=== PATIENT | female | born 1975 | race American Indian/Alaskan Native ===

== ENCOUNTER 2016-07-29 12:51 | Emergency (ER) | payer SELFPAY ==
--- NOTE | 2016-07-29 15:57 | Emergency Department Report ---
Chief Complaint: Abdominal Pain Stated Complaint: POSS STD Time Seen by Provider: 07/29/16 15:49 - HPI History of Present Illness: 41-year-old female comes in complaining of vaginal burning and itching positive discharge odor. Patient reports that she has some pelvic pain that comes and goes. Patient denies any painful urination and vaginal bleeding or nausea no vomiting or diarrhea. LMP 07/22/2016 - Exam Vital Signs: Vital Signs 07/29/16 13:38 Temperature 98.4 F Pulse Rate 70 Respiratory 16 Rate Blood Pressure 170/114 O2 Sat by Pulse 100 Oximetry Physical Exam: Alert and oriented 3 abdomen soft nontender non-distended. MSE screening note: Focused history and physical exam performed. Due to findings the following was ordered: Been evaluated by this and SE provider. Patient was order a CBC BMP and UA should be evaluated in the main ER ED Disposition for MSE Condition: Stable Instructions: Abdominal Pain (ED)
[2016-07-29 16:37] LABS: Hematocrit 34.4 % (30.3-42.9); Hemoglobin 11.3 gm/dl (10.1-14.3); Mean Corpuscular HGB Conc 33 % (30-34); Mean Corpuscular Hemoglobin 27 pg (28-32); Mean Corpuscular Volume 83 fl (79-97); Platelet Count 351 K/mm3 (140-440); Red Blood Count 4.17 M/mm3 (3.65-5.03); Red Cell Distribution Width 16.2 % (13.2-15.2); White Blood Count 8.3 K/mm3 (4.5-11.0)
[2016-07-29 17:07] LABS: Bilirubin,Urine NEG (Negative); Blood,Urine NEG (Negative); Ketones,Urine TR mg/dL (Negative); Leukocyte Esterase,Urine TR (Negative); Mucus,Urine FEW /HPF; Nitrite,Urine NEG (Negative); Urobilinogen,Urine < 2.0 mg/dL (<2.0)
[2016-07-29 17:23] LABS: Anion Gap 19 mmol/L; Blood Urea Nitrogen 14 mg/dL (7-17); Calcium 9.4 mg/dL (8.4-10.2); Carbon Dioxide 29 mmol/L (22-30); Chloride 94.7 mmol/L (98-107); Glucose 130 mg/dL (65-100); Potassium 3.7 mmol/L (3.6-5.0); Sodium 139 mmol/L (137-145)
--- NOTE | 2016-07-29 23:58 | Emergency Department Report ---
ED General Adult HPI - General Chief complaint: Abdominal Pain Stated complaint: POSS STD Time Seen by Provider: 07/29/16 15:49 Source: patient, RN notes reviewed Mode of arrival: Ambulatory Limitations: No Limitations - History of Present Illness Initial comments: This is a 41-year-old female, previously unknown to me. She does not have a primary care doctor. She reports a past medical history of hypertension. Surgical history includes dilatation and curettage, section, and laparoscopy in the for issues with fertility. She reports that her fallopian tubes were scarred up. She does not have an [employer] doctor. Patient presents to the ER with painful vaginal discharge. Has been going on for the past few days. Denies nausea, vomiting, chest pain. She does admit to intermittent abdominal pain. The abdominal pain is diffuse. It is associated with left flank pain. The pain has no exacerbating or relieving factors. -: Gradual Location: back, abdomen, pelvis, genitals Radiation: back Quality: aching Consistency: intermittent Improves with: none Worsens with: none Associated Symptoms: denies: confusion, chest pain, cough, diaphoresis, fever/ chills, headaches, loss of appetite, malaise, nausea/vomiting, rash, seizure, shortness of breath, syncope, weakness - Related Data Previous Rx's Medication Instructions Recorded Last Taken Type Doxycycline [Vibramycin] 100 mg PO Q12HR #28 capsule 07/30/16 Unknown Rx Ketorolac [Toradol] 10 mg PO Q6H PRN #20 tablet 07/30/16 Unknown Rx Ondansetron [Zofran Odt] 4 mg PO QID PRN #20 tab.rapdis 07/30/16 Unknown Rx oxyCODONE [Roxicodone] 5 mg PO Q6HR PRN #15 tablet 07/30/16 Unknown Rx Allergies Allergy/AdvReac Type Severity Reaction Status Date / Time No Known Allergies Allergy Verified 07/30/16 00:45 ED Review of Systems ROS: Stated complaint: POSS STD Other details as noted in HPI Constitutional: denies: malaise Eyes: denies: vision change ENT: denies: epistaxis Respiratory: denies: cough Gastrointestinal: abdominal pain Genitourinary: discharge Musculoskeletal: back pain Skin: denies: lesions Neurological: denies: weakness ED Past Medical Hx - Medications Home Medications: Home Medications Medication Instructions Recorded Confirmed Last Taken Type Doxycycline [Vibramycin] 100 mg PO Q12HR #28 capsule 07/30/16 Unknown Rx Ketorolac [Toradol] 10 mg PO Q6H PRN #20 tablet 07/30/16 Unknown Rx Ondansetron [Zofran Odt] 4 mg PO QID PRN #20 tab.rapdis 07/30/16 Unknown Rx oxyCODONE [Roxicodone] 5 mg PO Q6HR PRN #15 tablet 07/30/16 Unknown Rx ED Physical Exam - General Limitations: No Limitations General appearance: alert, in no apparent distress - Head Head exam: Present: atraumatic, normocephalic - Eye Eye exam: Present: normal appearance, EOMI. Absent: nystagmus - ENT ENT exam: Present: normal exam, normal orophraynx, mucous membranes moist - Neck Neck exam: Present: normal inspection, full ROM. Absent: tenderness, meningismus - Respiratory Respiratory exam: Present: normal lung sounds bilaterally. Absent: respiratory distress, wheezes, rales, rhonchi, stridor, chest wall tenderness - Cardiovascular Cardiovascular Exam: Present: regular rate, normal rhythm, normal heart sounds. Absent: bradycardia, tachycardia, irregular rhythm, systolic murmur, diastolic murmur, rubs, gallop - GI/Abdominal GI/Abdominal exam: Present: soft, normal bowel sounds. Absent: distended, tenderness, guarding, rebound, rigid, pulsatile mass - Extremities Exam Extremities exam: Present: normal inspection, full ROM, normal capillary refill. Absent: tenderness, pedal edema, joint swelling, calf tenderness - Back Exam Back exam: Present: normal inspection, full ROM, CVA tenderness (L). Absent: tenderness, CVA tenderness (R), muscle spasm, paraspinal tenderness, vertebral tenderness - Neurological Exam Neurological exam: Present: alert, oriented X3, normal gait, other (Extraocular movements intact. Tongue midline. No facial droop. Facial sensation intact to light touch in the V1, V2, V3 distribution bilaterally. 5 and 5 strength in 4 extremities.. Sensation is intact to light touch in 4 extremities.). Absent : motor sensory deficit - Psychiatric Psychiatric exam: Present: normal affect, normal mood - Skin Skin exam: Present: warm, dry, intact, normal color. Absent: rash ED Course Vital Signs 07/29/16 13:38 Temperature 98.4 F Pulse Rate 70 Respiratory 16 Rate Blood Pressure 170/114 O2 Sat by Pulse 100 Oximetry - Reevaluation(s) Reevaluation #1: 07/30/16 00:03 Differential diagnosis: Vaginitis, pelvic inflammatory disease, ovarian cyst, renal colic Assessment and plan: 41-year-old female with intermittent abdominal pain, afebrile, hypertensive but not taken her blood pressure medication today. She is left-sided CVA tenderness but no urinary symptoms. A urinalysis does not suggest urinary tract infection. test is pending. Pelvic examination is pending. Reevaluation #2: 07/30/16 00:54 pelvic exam demonstrated cervical motion tenderness and adnexal tenderness, pus noted from the cervix. Most likely pelvic inflammatory disease. During the gynecologic exam, I am escorted by ER medical records technician Beverly Guerrero. I doubt any condition that would require surgical intervention, but we will obtain a CAT scan. She will be treated with pain medication, ceftriaxone, doxycycline. Reevaluation #3: 07/30/16 01:36 ct scan does not show any acute surgical disease. patient feels improved after pain meds. i dont believe she requires an emergent pelvic ultrasound at this point. sHe will be discharged with pain medication, nausea medication, doxycycline, instructions to follow-up with gynecology. Return precautions are reviewed. ED Medical Decision Making - Lab Data Result diagrams: 07/29/16 16:29 07/29/16 16:29 Vital Signs 07/29/16 13:38 Temperature 98.4 F Pulse Rate 70 Respiratory 16 Rate Blood Pressure 170/114 O2 Sat by Pulse 100 Oximetry Labs 07/29/16 07/29/16 07/29/16 16:29 16:29 16:36 WBC 8.3 RBC 4.17 Hgb 11.3 Hct 34.4 MCV 83 MCH 27 L MCHC 33 RDW 16.2 H Plt Count 351 Sodium 139 Potassium 3.7 Chloride 94.7 L Carbon Dioxide 29 Anion Gap 19 BUN 14 Creatinine 0.8 Estimated GFR > 60 BUN/Creatinine Ratio 17.50 Glucose 130 H Calcium 9.4 Urine Color Yellow Urine Turbidity Slightly-cloudy Urine pH 6.0 Ur Specific [place] 1.024 Urine Protein 30 mg/dl Urine Glucose (UA) Neg Urine Ketones Tr Urine Blood Neg Urine Nitrite Neg Urine Bilirubin Neg Urine Urobilinogen < 2.0 Ur Leukocyte Esterase Tr Urine WBC (Auto) 6.0 Urine RBC (Auto) 1.0 U Epithel Cells (Auto) 11.0 Urine Mucus Few - Radiology Data Radiology results: report reviewed, image reviewed CT scan of the abdomen and pelvis: No evidence of intestinal or urinary tract obstruction. The appendix is normal. The uterus has a normal appearance. There is some fullness in the right adnexa , and a small right ovarian cyst as suspected. There is minimal fluid noted in the lower pelvis. Critical care attestation.: If time is entered above; I have spent that time in minutes in the direct care of this critically ill patient, excluding procedure time. ED Disposition Clinical Impression: Pelvic pain Disposition: DISCHARGED TO HOME OR SELFCARE Is pt being admited?: No Does the pt Need Aspirin: No Condition: Stable Instructions: Abdominal Pain (ED), Pelvic Inflammatory Disease (ED) Additional Instructions: As we discussed, your laboratory studies appeared to be within normal limits. You are not . The CAT scan your abdomen/pelvis did not demonstrate any acute disease or pathology that would require emergency surgery, Given all this, you'll be treated empirically for disease called pelvic inflammatory disease. We typically treat young females with unexplained lower abdominal pain to protect your ability to have children safely in the future. Cultures were sent today, and results will be available next 3-5 days. Please have your primary care doctor call the medical records department to obtain your culture results. Take the antibiotic therapy as directed. Take the nausea medication and pain medication as directed. I recommend outpatient testing for sexually transmitted diseases, including hepatitis, syphilis and HIV. I also recommend that you abstain from sexual activity until you have completed her antibiotic therapy, a physician states that it is safe for you to resume sexual activity, and any partners that you have been sexually active with have been tested/treated/evaluated for sexual transmitted diseases. Please follow-up with physician within 3-5 days. I recommend that you return to the ER right away with worsening pain, migration of pain, intractable nausea/vomiting, inability tolerate liquid feeds. Referrals: PRIMARY CARE, [Primary Care Provider] - 3-5 Days ALEXIS ALEGRE MD [Staff Physician] - 3-5 Days EL RICHMOND MD [Staff Physician] - 3-5 Days
--- NOTE | 2016-07-30 00:12 | Admit Criteria Form ---
Admission Criteria Documentation: ABDOMINAL PAIN: OBSERVATION CARE USE THIS FORM ONLY WHEN INPATIENT ADMISSION CRITERIA ARE NOT MET. (Place X for any and all applicable criteria): Placement for observation care is indicated for a patient with ANY ONE of the following(1)(2)(3)(4)(5))(6): []I. Suspected condition requiring continued monitoring (e.g., ectopic , appendicitis) [A] []II. Undiagnosed pain after evaluation and initial treatment with ANY ONE of the following: []a) Continued pain unrelieved by symptomatic treatment []b) Patient unable to maintain hydration status []c) Concerning finding on examination (e.g., increasing tenderness, focal abdominal finding) or diagnostic testing (e.g., air fluid level on x-ray) []III. A child whose situation includes ANY ONE of the following: []a) Clinical response to outpatient therapy uncertain []b) Outpatient supervision by parents or caregivers uncertain [X]IV. Other observation care needs. (Also use General Criteria: Observation Care). The original [facility] content created by [facility] has been revised. The portions of the content which have been revised are identified through the use of italic text, and [facility] has neither reviewed nor approved the modified material. All other unmodified content is copyright [facility] [employer]. Please see references footnoted in the original [facility] edition 2015 Admission Criteria Met: Pending
[2016-07-30] MEDS ORDERED: VIBRAMYCIN PO ONE (00:31)
[2016-07-30] MEDS ORDERED: NACL 0.9% 1000 ML 1,000 ML IV ONE (00:31)
[2016-07-30] MEDS ORDERED: TORADOL IV ONE (00:31)
[2016-07-30] MEDS ORDERED: ROCEPHIN/NS 1 GM/50 ML 50 ML IV ONE (00:31)
[2016-07-30] MEDS ORDERED: NACL ONE (00:41)
[2016-07-30] MEDS ORDERED: ROCEPHIN 250 MG in NACL 0.9% 50 ML IV ONE (00:54)
--- NOTE | 2016-07-30 01:28 | Cat Scan Report ---
FINAL REPORT PROCEDURE: CT ABDOMEN PELVIS W CON TECHNIQUE: Computerized axial tomography of the abdomen and pelvis was performed after the IV injection of iodinated nonionic contrast. HISTORY: abd pain ?pid COMPARISON: No prior studies are available for comparison. FINDINGS: Visualized lower thorax: No significant abnormality. Liver: Normal size and attenuation. Spleen: Normal size and attenuation. Gallbladder and biliary system: Normal. Pancreas: Normal. Adrenals: Normal. Kidneys: Both kidneys have a normal size. No hydronephrosis. No renal stones or masses.. GI tract: No obstruction. No ileus or enteritis. The cecum, appendix and colon are normal. Lymph nodes and mesentery: Normal. Vasculature: Normal. Bladder: Normal. Reproductive organs: The uterus is normal. There is some fullness identified in right adnexal region. A small 1 centimeter cyst is suspected. Minimal fluid in the lower pelvis is identified. Further evaluation of the pelvic structures with ultrasound may be appropriate.. Peritoneum: Minimal fluid in the lower pelvis.. Musculoskeletal structures: No significant abnormality. Other: None. IMPRESSION: There is no evidence of intestinal or urinary tract obstruction. No ileus or enteritis. The appendix is normal. The uterus has a normal appearance. There is some fullness in the right adnexal region, a small right ovarian cyst is suspected. Minimal fluid in the lower pelvis is noted. Further evaluation with pelvic ultrasound may be appropriate.
[2016-07-30 04:41] VITALS: BP 168/82
== END 2016-07-30 03:15 | disposition home or self-care (01) ==
LOC: EDBD 12:51 → ED 12:51
DX: R10.2 Pelvic and perineal pain (principal)
CPT/HCPCS: 36415; 74177; 80048; 81001; 81025; 85027; 87210; 87591; 96365; 96375; 99285; J0696; J1885; J7030; Q9967

== ENCOUNTER 2017-03-14 12:19 | Emergency (ER) | payer OTHER, SELFPAY ==
[2017-03-14] MEDS ORDERED: TYLENOL ONE ×2 (13:08→13:14)
[2017-03-14] MEDS ORDERED: LOPRESSOR ONE (13:09)
[2017-03-14] MEDS ORDERED: TYLENOL PO ONE (13:11)
[2017-03-14] MEDS: LOPRESSOR PO ONE ×2 (13:12→17:32)
[2017-03-14 13:23] LABS: Hematocrit 33.3 % (30.3-42.9); Mean Corpuscular HGB Conc 33 % (30-34); Mean Corpuscular Hemoglobin 27 pg (28-32); Mean Corpuscular Volume 82 fl (79-97); Platelet Count 273 K/mm3 (140-440); Red Blood Count 4.08 M/mm3 (3.65-5.03); Red Cell Distribution Width 16.5 % (13.2-15.2); White Blood Count 5.6 K/mm3 (4.5-11.0)
[2017-03-14 13:37] LABS: BUN/Creatinine Ratio 18.57; Blood Urea Nitrogen 13 mg/dL (7-17); Calcium 8.8 mg/dL (8.4-10.2); Carbon Dioxide 27 mmol/L (22-30); Glucose 79 mg/dL (65-100); Sodium 140 mmol/L (137-145)
[2017-03-14 13:38] LABS: Anion Gap 15 mmol/L; Chloride 102.5 mmol/L (98-107)
[2017-03-14] MEDS ORDERED: APRESOLINE PO ONE (16:44)
[2017-03-14] MEDS ORDERED: LOPRESSOR PO ONE (16:59)
[2017-03-14 17:05] LABS: Bilirubin,Urine NEG (Negative); Blood,Urine NEG (Negative); Ketones,Urine NEG (Negative); Leukocyte Esterase,Urine NEG (Negative); Mucus,Urine FEW /HPF; Nitrite,Urine NEG (Negative); Urobilinogen,Urine < 2.0 mg/dL (<2.0)
--- NOTE | 2017-03-14 17:57 | Emergency Department Report ---
ED Female HPI - General Chief complaint: Abdominal Pain Stated complaint: LOWER ABD PAIN Time Seen by Provider: 03/14/17 16:16 Source: patient, old records reviewed (patient was seen and evaluated here July 2016.Treated for STDs. Subsequently positive gonorrhea test. No follow -up.) Mode of arrival: Ambulatory Limitations: No Limitations - History of Present Illness Initial comments: 41-year-old female with a past medical history of hypertension and previous C- section presents to the hospital complaints of lower abdominal pain and increased urinary frequency 1 week. Patient denies dysuria. She's had some mild lower back pain associated with suprapubic abdominal pressure that is intermittent. No aggravating or alleviating factors reported. Patient presents with elevated blood pressure and has been noncompliant with her metoprolol 50 mg twice a day 1 week. PMD: None Patient was seen here in July. Positive gonorrhea test. Patient was empirically treated. She states she has a new partner since diagnosis. - Related Data Previous Rx's Medication Instructions Recorded Last Taken Type Metoprolol [Lopressor TAB] 50 mg PO BID #60 tablet 03/14/17 Unknown Rx amLODIPine [Norvasc] 10 mg PO DAILY #30 tab 03/14/17 Unknown Rx traMADol [Ultram 50 MG tab] 50 mg PO Q6HR PRN #20 tablet 03/14/17 Unknown Rx Allergies Allergy/AdvReac Type Severity Reaction Status Date / Time No Known Allergies Allergy Verified 07/30/16 00:45 ED Review of Systems ROS: Stated complaint: LOWER ABD PAIN Other details as noted in HPI Comment: All other systems reviewed and negative Other: General: No fever or chills Eyes: No blurry vision or discharge HEENT: No throat pain Neck: No pain Respiratory: No shortness of breath, wheezing, or coughing Endocrine: No increased thirst, excessive weight loss Cardiovascular: No chest pain, palpitations, or syncope GI: As per HPI : As per HPI Musculoskeletal: no joint swelling Neurologic: Denies headache, focal weakness, or focal numbness Psychiatric: Denies hallucinations, suicidal ideation, homicidal ideation Skin: No rash or lesions ED Past Medical Hx - Past Medical History Hx Hypertension: Yes - Surgical History Additional Surgical History: , - Social History Smoking Status: Never Smoker Substance Use Type: None - Medications Home Medications: Home Medications Medication Instructions Recorded Confirmed Last Taken Type Metoprolol [Lopressor TAB] 50 mg PO BID #60 tablet 03/14/17 Unknown Rx amLODIPine [Norvasc] 10 mg PO DAILY #30 tab 03/14/17 Unknown Rx traMADol [Ultram 50 MG tab] 50 mg PO Q6HR PRN #20 tablet 03/14/17 Unknown Rx ED Physical Exam - General Limitations: No Limitations - Other Other exam information: General: No acute distress, Head: Atraumatic, normocephalic Eyes: Normal appearance, pupils equal and reactive to light, extraocular movements intact HEENT: Moist mucous membranes, normal oropharynx Neck: Full range of motion, normal inspection, no midline tenderness CV: Regular rate and rhythm Respiratory: Clear to auscultation, no wheezes, rales, or crackles Abdomen: Soft, nondistended, no suprapubic tenderness, normal bowel sounds, no rebound or guarding : No CMT or adnexal tenderness Extremities: Full range of motion, no deformity Back: Normal inspection, nontender, full range of motion Neurologic: Alert and oriented 3, cranial nerves grossly intact, no motor or sensory deficit Psychiatric: Normal mood and affect ED Course Vital Signs 03/14/17 03/14/17 03/14/17 12:57 13:12 14:20 Temperature 98.6 F Pulse Rate 84 61 Respiratory 84 H 18 Rate Blood Pressure 213/126 224/135 Blood Pressure [Left] O2 Sat by Pulse 100 Oximetry 03/14/17 03/14/17 03/14/17 15:32 15:46 15:48 Temperature Pulse Rate 58 L 57 L Respiratory 20 20 Rate Blood Pressure Blood Pressure [Left] O2 Sat by Pulse 100 100 Oximetry 03/14/17 03/14/17 03/14/17 16:00 16:33 16:45 Temperature Pulse Rate 59 L 71 63 Respiratory 21 24 28 H Rate Blood Pressure 203/109 187/108 232/123 Blood Pressure [Left] O2 Sat by Pulse 97 100 100 Oximetry 03/14/17 03/14/17 03/14/17 16:48 17:00 17:15 Temperature Pulse Rate 64 60 62 Respiratory 17 22 Rate Blood Pressure 223/123 190/122 203/109 Blood Pressure [Left] O2 Sat by Pulse 100 99 Oximetry 03/14/17 03/14/17 03/14/17 17:31 17:45 18:00 Temperature Pulse Rate 63 62 62 Respiratory 16 23 21 Rate Blood Pressure 203/109 203/109 214/106 Blood Pressure [Left] O2 Sat by Pulse 98 100 99 Oximetry 03/14/17 03/14/17 03/14/17 18:25 18:31 18:45 Temperature Pulse Rate 73 63 63 Respiratory 25 H 24 18 Rate Blood Pressure 190/122 190/122 190/122 Blood Pressure [Left] O2 Sat by Pulse 100 99 100 Oximetry 03/14/17 03/14/17 03/14/17 19:00 19:15 19:31 Temperature Pulse Rate 66 70 64 Respiratory 14 14 21 Rate Blood Pressure 197/107 214/106 214/106 Blood Pressure [Left] O2 Sat by Pulse 100 100 100 Oximetry 03/14/17 03/14/17 03/14/17 19:45 20:01 20:15 Temperature Pulse Rate 61 71 65 Respiratory 17 14 Rate Blood Pressure 214/106 214/106 194/116 Blood Pressure [Left] O2 Sat by Pulse 100 92 100 Oximetry 03/14/17 03/14/17 03/14/17 20:31 20:45 21:01 Temperature Pulse Rate 64 65 85 Respiratory 25 H 21 26 H Rate Blood Pressure 211/122 197/107 197/107 Blood Pressure [Left] O2 Sat by Pulse 100 100 100 Oximetry 03/14/17 03/14/17 03/14/17 21:13 21:21 21:23 Temperature Pulse Rate 79 79 63 Respiratory 19 Rate Blood Pressure 233/143 161/95 243/133 Blood Pressure [Left] O2 Sat by Pulse Oximetry 03/14/17 21:33 Temperature Pulse Rate 79 Respiratory 20 Rate Blood Pressure Blood Pressure 161/95 [Left] O2 Sat by Pulse 99 Oximetry - Reevaluation(s) Reevaluation #1: 03/14/17 21:28 Patient repeat Tylenol with improvement in pain. Appears to be in no acute distress. She will cart multiple doses of by mouth the IV blood pressure medicine to reduce her BP. She is relatively asymptomatic. Her major complaint is urinary frequency. ED Medical Decision Making - Lab Data Result diagrams: 03/14/17 13:08 03/14/17 13:08 Lab Results 03/14/17 03/14/17 03/14/17 Range/Units 13:08 13:08 16:30 WBC 5.6 (4.5-11.0) K/mm3 RBC 4.08 (3.65-5.03) M/mm3 Hgb 11.0 (10.1-14.3) gm/dl Hct 33.3 (30.3-42.9) % MCV 82 (79-97) fl MCH 27 L (28-32) pg MCHC 33 (30-34) % RDW 16.5 H (13.2-15.2) % Plt Count 273 (140-440) K/mm3 Sodium 140 (137-145) mmol/L Potassium 4.0 (3.6-5.0) mmol/L Chloride 102.5 (98-107) mmol/L Carbon Dioxide 27 (22-30) mmol/L Anion Gap 15 mmol/L BUN 13 (7-17) mg/dL Creatinine 0.7 (0.7-1.2) mg/dL Estimated GFR > 60 ml/min BUN/Creatinine Ratio 18.57 % Glucose 79 (65-100) mg/dL Calcium 8.8 (8.4-10.2) mg/dL Urine Color Yellow (Yellow) Urine Turbidity Clear (Clear) Urine pH 5.0 (5.0-7.0) Ur Specific [place] 1.025 (1.003-1.030) Urine Protein 30 mg/dl (Negative) mg/dL Urine Glucose (UA) Neg (Negative) mg/dL Urine Ketones Neg (Negative) mg/dL Urine Blood Neg (Negative) Urine Nitrite Neg (Negative) Urine Bilirubin Neg (Negative) Urine Urobilinogen < 2.0 (<2.0) mg/dL Ur Leukocyte Esterase Neg (Negative) Urine WBC (Auto) 1.0 (0.0-6.0) /HPF Urine RBC (Auto) 4.0 (0.0-6.0) /HPF U Epithel Cells (Auto) 4.0 (0-13.0) /HPF Urine Mucus Few /HPF Urine HCG, Qual (Negative) 03/14/17 Range/Units 16:35 WBC (4.5-11.0) K/mm3 RBC (3.65-5.03) M/mm3 Hgb (10.1-14.3) gm/dl Hct (30.3-42.9) % MCV (79-97) fl MCH (28-32) pg MCHC (30-34) % RDW (13.2-15.2) % Plt Count (140-440) K/mm3 Sodium (137-145) mmol/L Potassium (3.6-5.0) mmol/L Chloride (98-107) mmol/L Carbon Dioxide (22-30) mmol/L Anion Gap mmol/L BUN (7-17) mg/dL Creatinine (0.7-1.2) mg/dL Estimated GFR ml/min BUN/Creatinine Ratio % Glucose (65-100) mg/dL Calcium (8.4-10.2) mg/dL Urine Color (Yellow) Urine Turbidity (Clear) Urine pH (5.0-7.0) Ur Specific [place] (1.003-1.030) Urine Protein (Negative) mg/dL Urine Glucose (UA) (Negative) mg/dL Urine Ketones (Negative) mg/dL Urine Blood (Negative) Urine Nitrite (Negative) Urine Bilirubin (Negative) Urine Urobilinogen (<2.0) mg/dL Ur Leukocyte Esterase (Negative) Urine WBC (Auto) (0.0-6.0) /HPF Urine RBC (Auto) (0.0-6.0) /HPF U Epithel Cells (Auto) (0-13.0) /HPF Urine Mucus /HPF Urine HCG, Qual Negative (Negative) - EKG Data -: EKG Interpreted by Me (sinus bradycardia rate 59, left atrial enlargement, LVH) - EKG Data When compared to previous EKG there are: previous EKG unavailable - Medical Decision Making Cause of urinary frequency not identified this time. Pelvic exam unremarkable. Wet prep negative. UA negative. Patient has poorly controlled pressure but with normal renal function and no other symptoms of hypertensive emergency. Poorly controlled blood pressure like he secondary to medication noncompliance. Patient supposedly a Norvasc 10 mg daily and metoprolol 50 mg twice a day. She ran her Norvasc 1st then ran out of her metoprolol 1 week ago. I will restart hers medication but am encouraging outpatient follow-up for further evaluation of her symptoms and medication adjustment as necessary. Patient informed that she needs to follow up for her STD results because STDs may also cause urinary symptoms. I do not have evidence at this time of infection and therefore has not been treated with antibiotics. - Differential Diagnosis UTI, vaginitis, cervicitis, PID Critical Care Time: No Critical care attestation.: If time is entered above; I have spent that time in minutes in the direct care of this critically ill patient, excluding procedure time. ED Disposition Clinical Impression: Urinary frequency, Uncontrolled hypertension, Noncompliance with medication regimen Disposition: TO HOME OR SELFCARE Is pt being admited?: No Does the pt Need Aspirin: No Condition: Stable Instructions: Dysuria (ED), Hypertension (ED) Additional Instructions: I have restarted your recent blood pressure medication. Please note follow-up is very important to determine if this dose of medication is adequate to control your blood pressure. The cause of the urinary frequency has not yet been identified. There are no signs of urinary tract infection. Your STD tests are pending and sometimes STDs may cause urinary symptoms. Your gonorrhea and Chlamydia cultures have been sent and are pending in the lab. They take approximately 3-4 days to results. You may obtain results by going to medical records in person with a photo ID. You may also obtain results by following up with your primary care doctor or [employer] doctor and they can requested medical records. Please return if symptoms worsen. Prescriptions: amLODIPine [Norvasc] 10 mg PO DAILY #30 tab Metoprolol [Lopressor TAB] 50 mg PO BID #60 tablet traMADol [Ultram 50 MG tab] 50 mg PO Q6HR PRN #20 tablet PRN Reason: Pain Referrals: [facility] [Provider Group] - 3-5 Days (Primary care clinic) CRISELDA GRANT MD [Staff Physician] - 3-5 Days (urologist) Time of Disposition: 21:39
[2017-03-14] MEDS ORDERED: CATAPRES PO ONE (20:26)
[2017-03-14] MEDS ORDERED: CATAPRES ONE (20:27)
[2017-03-14] MEDS ORDERED: APRESOLINE IV ONE (21:03)
[2017-03-14 23:32] VITALS: BP 152/86
== END 2017-03-14 23:57 | disposition home or self-care (01) ==
LOC: ED 12:19
DX: I10 Essential (primary) hypertension (principal); R35.0 Frequency of micturition; Z91.14 Patient's other noncompliance with medication regimen
CPT/HCPCS: 36415; 80048; 81001; 81025; 85027; 87210; 87591; 93005; 93010; 96374; 99284; J0360

== ENCOUNTER 2017-06-21 12:44 | Inpatient (IN) | payer SELFPAY ==
[2017-06-21] MEDS ORDERED: NORMODYNE IV ONE (17:29)
[2017-06-21 18:01] LABS: Basophils % (Auto) 0.6 % (0.0-1.8); Eosinophils % (Auto) 0.9 % (0.0-4.3); Hematocrit 33.9 % (30.3-42.9); Hemoglobin 11.1 gm/dl (10.1-14.3); Mean Corpuscular HGB Conc 33 % (30-34); Mean Corpuscular Hemoglobin 27 pg (28-32); Mean Corpuscular Volume 83 fl (79-97); Platelet Count 343 K/mm3 (140-440); Red Blood Count 4.09 M/mm3 (3.65-5.03); Red Cell Distribution Width 15.9 % (13.2-15.2); White Blood Count 10.3 K/mm3 (4.5-11.0)
[2017-06-21 18:17] LABS: Alanine Aminotransferase 7 units/L (7-56); Albumin 4.6 g/dL (3.9-5); Albumin/Globulin Ratio 1.4 %; Alkaline Phosphatase 87 units/L (35-129); Anion Gap 18 mmol/L; BUN/Creatinine Ratio 14; Blood Urea Nitrogen 10 mg/dL (7-17); Carbon Dioxide 27 mmol/L (22-30); Chloride 96.4 mmol/L (98-107); Creatine Kinase 108 units/L (30-135); Glucose 118 mg/dL (65-100); Potassium 3.1 mmol/L (3.6-5.0); Sodium 138 mmol/L (137-145)
--- NOTE | 2017-06-21 18:17 | Emergency Department Report ---
ED General Adult HPI - General Chief complaint: Upper Respiratory Infection Stated complaint: FLU LIKE SYMPTOMS Time Seen by Provider: 06/21/17 17:24 Source: patient Mode of arrival: Ambulatory Limitations: No Limitations - History of Present Illness Initial comments: Patient presents to the emergency department for evaluation of myalgias and nonproductive cough. She admits to taking Tylenol flu and Afrin nasal spray. She has been out of her blood pressure medicine (Norvasc) for an unknown period of time. She does not have a local physician. She states that she has been in the emergency department before for acute reduction of her blood pressure but was able to leave after several hours. She does not complain of shortness of breath nor chest pain. She denies abdominal pain fever or chills. She isn't complaining of headache. She's had no focal neurologic change. -: Gradual Location: upper extremity, lower extremity Radiation: non-radiation Severity scale (0 -10): 4 Quality: aching Consistency: intermittent Improves with: none Worsens with: none Associated Symptoms: denies other symptoms Treatments Prior to Arrival: none - Related Data Previous Rx's Medication Instructions Recorded Last Taken Type Metoprolol [Lopressor TAB] 50 mg PO BID #60 tablet 03/14/17 Unknown Rx amLODIPine [Norvasc] 10 mg PO DAILY #30 tab 03/14/17 Unknown Rx traMADol [Ultram 50 MG tab] 50 mg PO Q6HR PRN #20 tablet 03/14/17 Unknown Rx Allergies Allergy/AdvReac Type Severity Reaction Status Date / Time No Known Allergies Allergy Verified 07/30/16 00:45 ED Review of Systems ROS: Stated complaint: FLU LIKE SYMPTOMS Other details as noted in HPI Constitutional: denies: chills, fever Eyes: denies: eye pain, eye discharge, vision change ENT: denies: ear pain, throat pain Respiratory: cough. denies: shortness of breath, wheezing Cardiovascular: denies: chest pain, palpitations Endocrine: no symptoms reported Gastrointestinal: denies: abdominal pain, nausea, diarrhea Genitourinary: denies: urgency, dysuria, discharge Musculoskeletal: denies: back pain, joint swelling, arthralgia Skin: denies: rash, lesions Neurological: denies: headache, weakness, paresthesias Psychiatric: denies: anxiety, depression Hematological/Lymphatic: denies: easy bleeding, easy bruising ED Past Medical Hx - Past Medical History Hx Hypertension: Yes - Surgical History Additional Surgical History: , - Social History Smoking Status: Never Smoker Substance Use Type: None - Medications Home Medications: Home Medications Medication Instructions Recorded Confirmed Last Taken Type Metoprolol [Lopressor TAB] 50 mg PO BID #60 tablet 03/14/17 Unknown Rx amLODIPine [Norvasc] 10 mg PO DAILY #30 tab 03/14/17 Unknown Rx traMADol [Ultram 50 MG tab] 50 mg PO Q6HR PRN #20 tablet 03/14/17 Unknown Rx ED Physical Exam - General Limitations: No Limitations General appearance: alert, in no apparent distress - Head Head exam: Present: atraumatic, normocephalic - Eye Eye exam: Present: normal appearance, PERRL, EOMI. Absent: scleral icterus - ENT ENT exam: Present: mucous membranes moist - Neck Neck exam: Present: normal inspection - Respiratory Respiratory exam: Present: normal lung sounds bilaterally. Absent: respiratory distress - Cardiovascular Cardiovascular Exam: Present: regular rate, normal rhythm. Absent: systolic murmur, diastolic murmur, rubs, gallop - GI/Abdominal GI/Abdominal exam: Present: soft, normal bowel sounds. Absent: distended, tenderness, guarding, rebound, rigid - Extremities Exam Extremities exam: Present: normal inspection - Back Exam Back exam: Present: normal inspection - Neurological Exam Neurological exam: Present: alert, oriented X3, CN II-XII intact. Absent: motor sensory deficit - Psychiatric Psychiatric exam: Present: normal affect, normal mood - Skin Skin exam: Present: warm, dry, intact, normal color. Absent: rash ED Course Vital Signs 06/21/17 06/21/17 06/21/17 14:04 17:18 18:05 Temperature 99.4 F 97.7 F Pulse Rate 130 H 120 H Respiratory 20 20 19 Rate Blood Pressure 219/145 Blood Pressure 213/145 [Left] O2 Sat by Pulse 100 100 100 Oximetry 06/21/17 06/21/17 06/21/17 18:09 18:10 18:32 Temperature Pulse Rate 110 H 110 H 95 H Respiratory 9 L Rate Blood Pressure 219/136 219/136 Blood Pressure 217/121 [Left] O2 Sat by Pulse 100 Oximetry - Reevaluation(s) Reevaluation #1: Given IV labetalol. Patient no distress. 06/21/17 18:17 Reevaluation #2: On reexamination the patient complains of sore throat and myalgias. Her throat appears normal. She has some rhinitis. She is certainly neurologically intact. I will give her something for pain and 20 mg of hydralazine IV. Discussed with Dr. Humphries. The patient will be admitted to telemetry for further care and evaluation/stabilization by the hospital staff. She was given potassium 40 mg by mouth for her hypokalemia. 06/21/17 19:19 ED Medical Decision Making - Lab Data Result diagrams: 06/21/17 17:45 06/21/17 17:44 Laboratory Results - last 24 hr 06/21/17 06/21/17 17:44 17:45 WBC 10.3 RBC 4.09 Hgb 11.1 Hct 33.9 MCV 83 MCH 27 L MCHC 33 RDW 15.9 H Plt Count 343 Lymph % (Auto) 8.0 L [place] % (Auto) 3.7 Eos % (Auto) 0.9 Baso % (Auto) 0.6 Lymph # 0.8 L [place] # 0.4 Eos # 0.1 Baso # 0.1 Seg Neutrophils % 86.8 H Seg Neutrophils # 8.9 H CK-MB (CK-2) 1.0 Troponin T < 0.010 NT-Pro-B Natriuret Pep 442.0 - EKG Data -: EKG Interpreted by Me EKG shows normal: sinus rhythm Rate: normal - EKG Data Interpretation: nonspecific ST-T wave feliberto, other Patient's EKG is consistent with old anteroseptal zone and poor R-wave progression. Q waves related to LVH cannot be excluded. 06/21/17 19:23 - Radiology Data interpreted by me: Chest x-ray shows no acute disease. Critical care attestation.: If time is entered above; I have spent that time in minutes in the direct care of this critically ill patient, excluding procedure time. ED Disposition Clinical Impression: Accelerated hypertension, Hypokalemia, Abnormal EKG, Medical non-compliance Adverse effect of [id number] medication Qualifiers: Encounter type: initial encounter Qualified Code(s): T50.905A - Adverse effect of unspecified drugs, medicaments and biological substances, initial encounter Disposition: OP ADMIT IP TO THIS HOSP Is pt being admited?: Yes Does the pt Need Aspirin: Yes Condition: Stable Instructions: Hypertension (ED) Referrals: PRIMARY CARE, [Primary Care Provider] - 3-5 Days Time of Disposition: 19:26
[2017-06-21 18:30] LABS: Bilirubin,Direct < 0.2 mg/dL (0-0.2)
[2017-06-21 18:41] LABS: INR 0.92 (0.87-1.13)
[2017-06-21 18:42] LABS: Partial Thromboplastin Time 36.6 Sec. (24.2-36.6)
--- NOTE | 2017-06-21 18:52 | XRay Report ---
FINAL REPORT PROCEDURE: Chest. TECHNIQUE: Portable AP view. HISTORY: Hypertension. COMPARISON: No prior studies are available for comparison. FINDINGS: The patient is rotated slightly to the left. The heart and mediastinum appear normal. The lungs are clear and well expanded. There are no pleural effusions. The soft tissues and regional skeleton are unremarkable. IMPRESSION: Negative portable chest.
[2017-06-21] MEDS ORDERED: K-DUR PO ONE (19:16)
[2017-06-21] MEDS ORDERED: APRESOLINE IV ONE (19:17)
[2017-06-21] MEDS ORDERED: NORCO 5/325 PO ONE (19:19)
[2017-06-21] MEDS ORDERED: CATAPRES PO ONE (19:24)
[2017-06-21] MEDS ORDERED: BABY ASPIRIN PO ONE (19:26)
[2017-06-21] MEDS ORDERED: ULTRAM PO PRN (20:57)
[2017-06-21] MEDS ORDERED: FLONASE NS ONE (20:57)
[2017-06-21] MEDS ORDERED: APRESOLINE IV PRN (20:58)
[2017-06-21] MEDS ORDERED: CLARITIN-D 12HR PO ONE (20:58)
[2017-06-21] MEDS ORDERED: MORPHINE IV PRN (20:59)
--- NOTE | 2017-06-21 21:07 | History and Physical Report ---
History of Present Illness Date of examination: 06/21/17 Chief complaint: Headache History of present illness: 42-year-old -[place] female with past medical history significant for hypertension, medication noncompliance presented to the emergency department complaining of headache and stuffy nose for the last 2 days. She is also complaining of runny nose, dry cough, but no fever or chills. She look Tylenol without improvement. Patient didn't take her blood pressure medication for the last 2 days. She ran of her blood pressure medication for the last 2 days. While she presented in the emergency department her blood pressure was 220 x 135. Patient admitted for the management of hypertensive urgency. REVIEW OF SYSTEMS: GENERAL: no weight change, no fatigue, no fever HEAD: no head ache EYES: no blurry vision, no acute visual loss EARS: no hearing loss, no discharge, no earache NOSE: + stuffiness, + sneezing, + discharge MOUTH, THROAT AND NECK: no bleeding gums, no sore throat, no swollen neck CARDIAC: no palpitations, no dyspnea on exertion, no orthopnea, no PND, no edema , no chest pain RESPIRATORY: no shortness of breath, no wheeze, no cough, no sputum, no hemoptysis, no asthma GI: no decreased appetite, no nausea, no vomiting, no dysphagia, no diarrhea, no constipation, no abdominal pain URINARY: no change in frequency, no urgency, no polyuria, no hematuria, no incontinence MUSCULOSKELETAL: no muscle weakness, no pain, no joint stiffness NEUROLOGIC: no loss of sensation/numbness, no tingling, no tremors, no weakness/ paralysis HEMATOLOGIC: no anemia, no easy bruising SKIN: no rashes ENDOCRINE: no heat/cold intolerance, no polyuria, no polydipsia, no thyroid problems, no diabetes PSYCHIATRIC: no anxiety, no depression, no suicidal ideations Past History Past Medical History: hypertension Past Surgical History: No surgical history Social history: full code. denies: smoking, alcohol abuse, prescription drug abuse, IV drug use Family history: no significant family history Medications and Allergies Allergies Allergy/AdvReac Type Severity Reaction Status Date / Time No Known Allergies Allergy Verified 07/30/16 00:45 Home Medications Medication Instructions Recorded Confirmed Last Taken Type Metoprolol [Lopressor TAB] 50 mg PO BID #60 tablet 03/14/17 Unknown Rx amLODIPine [Norvasc] 10 mg PO DAILY #30 tab 03/14/17 Unknown Rx traMADol [Ultram 50 MG tab] 50 mg PO Q6HR PRN #20 tablet 03/14/17 Unknown Rx Active Meds: Active Medications Amlodipine Besylate (Norvasc) 10 mg PO DAILY LEA Enoxaparin Sodium (Lovenox) 40 mg SUB-Q Q24H LEA Fluticasone Propionate (Flonase) 100 mcg NS ONCE ONE Stop: 06/21/17 20:58 Hydralazine HCl (Apresoline) 20 mg IV Q4H PRN PRN Reason: Hypertension Loratadine/Pseudoephedrine Sulfate (Claritin-D 12hr) 1 each PO ONCE ONE Stop: 06/21/17 20:59 Metoprolol Tartrate (Lopressor) 50 mg PO BID LEA Morphine Sulfate (Morphine) 2 mg IV Q4H PRN PRN Reason: Pain, Moderate (4-6) Tramadol HCl (Ultram) 50 mg PO Q6HR PRN PRN Reason: Pain Exam - Physical Exam Narrative exam: Not in cardiopulmonary distress. The patient appeared well nourished and normally developed. Vital signs as documented. Head exam is unremarkable. No scleral icterus . Neck is without jugular venous distension, thyromegaly, or carotid bruits. Lungs are clear to auscultation. Cardiac exam reveals regular rate and Rhythm. First and second heart sounds normal. No murmurs, rubs or gallops. Abdominal exam reveals normal bowel sounds, no masses, no organomegaly and no aortic enlargement. Extremities are nonedematous and both femoral and pedal pulses are normal. PRESS TECHNICIAN: Alert and oriented 3. No focal weakness. - Constitutional Vitals: Temp Pulse Resp BP Pulse Ox 97.7 F 95 H 9 L 217/121 100 06/21/17 17:18 06/21/17 18:32 06/21/17 18:09 06/21/17 18:32 06/21/17 18:09 Results - Labs CBC & Chem 7: 06/21/17 17:45 12 17:44 Labs: Laboratory Last Values WBC 10.3 K/mm3 (4.5-11.0) 06/21/17 17:45 RBC 4.09 M/mm3 (3.65-5.03) 06/21/17 17:45 Hgb 11.1 gm/dl (10.1-14.3) 06/21/17 17:45 Hct 33.9 % (30.3-42.9) 06/21/17 17:45 MCV 83 fl (79-97) 06/21/17 17:45 MCH 27 pg (28-32) L 06/21/17 17:45 MCHC 33 % (30-34) 06/21/17 17:45 RDW 15.9 % (13.2-15.2) H 06/21/17 17:45 Plt Count 343 K/mm3 (140-440) 06/21/17 17:45 Lymph % (Auto) 8.0 % (13.4-35.0) L 06/21/17 17:45 [place] % (Auto) 3.7 % (0.0-7.3) 06/21/17 17:45 Eos % (Auto) 0.9 % (0.0-4.3) 06/21/17 17:45 Baso % (Auto) 0.6 % (0.0-1.8) 06/21/17 17:45 Lymph # 0.8 K/mm3 (1.2-5.4) L 06/21/17 17:45 [place] # 0.4 K/mm3 (0.0-0.8) 06/21/17 17:45 Eos # 0.1 K/mm3 (0.0-0.4) 06/21/17 17:45 Baso # 0.1 K/mm3 (0.0-0.1) 06/21/17 17:45 Seg Neutrophils % 86.8 % (40.0-70.0) H 06/21/17 17:45 Seg Neutrophils # 8.9 K/mm3 (1.8-7.7) H 06/21/17 17:45 PT 12.8 Sec. (12.2-14.9) 06/21/17 17:44 INR 0.92 (0.87-1.13) 06/21/17 17:44 APTT 36.6 Sec. (24.2-36.6) 06/21/17 17:44 Sodium 138 mmol/L (137-145) 06/21/17 17:44 Potassium 3.1 mmol/L (3.6-5.0) L 06/21/17 17:44 Chloride 96.4 mmol/L (98-107) L 06/21/17 17:44 Carbon Dioxide 27 mmol/L (22-30) 06/21/17 17:44 Anion Gap 18 mmol/L 06/21/17 17:44 BUN 10 mg/dL (7-17) 06/21/17 17:44 Creatinine 0.7 mg/dL (0.7-1.2) 06/21/17 17:44 Estimated GFR > 60 ml/min 06/21/17 17:44 BUN/Creatinine Ratio 14 % 06/21/17 17:44 Glucose 118 mg/dL (65-100) H 06/21/17 17:44 Calcium 9.0 mg/dL (8.4-10.2) 06/21/17 17:44 Total Bilirubin 0.20 mg/dL (0.1-1.2) 06/21/17 17:44 Direct Bilirubin < 0.2 mg/dL (0-0.2) 06/21/17 17:44 Indirect Bilirubin 0.0 mg/dL 06/21/17 17:44 AST 14 units/L (5-40) 06/21/17 17:44 ALT 7 units/L (7-56) 06/21/17 17:44 Alkaline Phosphatase 87 units/L (35-129) 06/21/17 17:44 Total Creatine Kinase 108 units/L (30-135) 06/21/17 17:44 CK-MB (CK-2) 1.0 ng/mL (0.0-4.0) 06/21/17 17:44 CK-MB (CK-2) Rel Index 0.9 (0-4) 06/21/17 17:44 Troponin T < 0.010 ng/mL (0.00-0.029) 06/21/17 17:44 NT-Pro-B Natriuret Pep 442.0 pg/mL (0-450) 06/21/17 17:44 Total Protein 8.0 g/dL (6.3-8.2) 06/21/17 17:44 Albumin 4.6 g/dL (3.9-5) 06/21/17 17:44 Albumin/Globulin Ratio 1.4 % 06/21/17 17:44 - Imaging and Cardiology Chest x-ray: report reviewed (no acute cardiothoracic movements identified) Assessment and Plan Assessment and plan: Hypertensive urgency - On IV hydralazine, start her home blood pressure medications - We will monitor Medication no compliance - Patient was counselled Upper respiratory tract infection - Flonase, Claritin DVT prophylaxis - Lovenox Disposition - Admit to [facility] - [place] Advance Directives: Yes VTE prophylaxis?: Chemical Plan of care discussed with patient/family: Yes
[2017-06-21 21:51] LABS: Urine Drugs of Abuse Note Disclamer
[2017-06-21] MEDS ORDERED: LOVENOX SUB-Q SCH (22:00)
[2017-06-21] MEDS: LOPRESSOR PO SCH (22:04)
[2017-06-21 22:06] LABS: Bilirubin,Urine NEG (Negative); Blood,Urine NEG (Negative); Ketones,Urine TR mg/dL (Negative); Leukocyte Esterase,Urine NEG (Negative); Mucus,Urine FEW /HPF; Nitrite,Urine NEG (Negative); WBC,Urine < 1.0 /HPF (0.0-6.0)
[2017-06-21] MEDS: NORVASC PO SCH (22:12)
[2017-06-22 06:31] LABS: Anion Gap 16 mmol/L; BUN/Creatinine Ratio 16; Blood Urea Nitrogen 11 mg/dL (7-17); Calcium 8.7 mg/dL (8.4-10.2); Carbon Dioxide 26 mmol/L (22-30); Chloride 100.3 mmol/L (98-107); Glucose 99 mg/dL (65-100); Potassium 3.6 mmol/L (3.6-5.0); Sodium 139 mmol/L (137-145)
[2017-06-22] MEDS: NORVASC PO SCH (10:51)
[2017-06-22] MEDS: LOPRESSOR PO SCH (10:52)
[2017-06-22] MEDS ORDERED: Fluarix Quad 2017-2018(36 MOS+ IM ONE (12:00)
[2017-06-22 12:17] VITALS: BP 135/85
--- NOTE | 2017-06-22 13:45 | Discharge Summary ---
Providers - Providers Date of Admission: 06/21/17 19:27 Date of discharge: 06/22/17 Attending physician: DIANELYS RED Primary care physician: GREGORY TORRES MD Hospitalization Condition: Good Hospital course: 42-year-old presents with hypertensive emergency. 10 medical noncompliance. Patient ran out of Norvasc and metoprolol her pressure was found to be 220/135. This was causing her headache. Patient also had some sinusitis symptoms as well. Patient was placed back on her blood pressure medicines treated for hypertensive emergency blood pressure resolved came down to 135/85. Patient received IV hydralazine and clonidine. Was also treated for upper respiratory tract infection with Flonase and azithromycin. Patient also hospital course complicated by hypokalemia which was also corrected. Hemodynamically was stable for discharge. Disposition: DC-01 TO HOME OR SELFCARE - Discharge Diagnoses (1) Accelerated hypertension Status: Resolved (2) Medical non-compliance Status: Acute Core Measure Documentation - Palliative Care Palliative Care/ Comfort Measures: Palliative Care/Comfort Measures - Core Measures Any of the following diagnoses?: none Exam - Constitutional Vitals: Temp Pulse Resp BP Pulse Ox 98.4 F 104 H 18 135/85 100 06/22/17 12:14 06/22/17 12:14 06/22/17 12:14 06/22/17 12:14 06/22/17 12:14 General appearance: Present: no acute distress, well-nourished - EENT Eyes: Present: PERRL ENT: hearing intact, clear oral mucosa - Neck Neck: Present: supple, normal ROM - Respiratory Respiratory effort: normal Respiratory: bilateral: CTA - Cardiovascular Heart Sounds: Present: S1 & S2. Absent: rub, click - Extremities Extremities: pulses symmetrical, No edema Peripheral Pulses: within normal limits - Abdominal General gastrointestinal: Present: soft, non-tender, non-distended, normal bowel sounds Female genitourinary: Present: normal - Integumentary Integumentary: Present: clear, warm, dry - Musculoskeletal Musculoskeletal: gait normal, strength equal bilaterally - Psychiatric Psychiatric: appropriate mood/affect, intact judgment & insight - Neurologic Neurologic: CNII-XII intact, moves all extremities Plan Activity: no restrictions Weight Bearing Status: Full Weight Bearing Diet: low salt Follow up with: PRIMARY CARE, [Primary Care Provider] - 3-5 Days Prescriptions: amLODIPine [Norvasc] 10 mg PO DAILY #30 tab Azithromycin [Zithromax TAB] 500 mg PO QDAY #7 tablet guaiFENesin ER [Mucinex ER] 600 mg PO BID #14 tablet Metoprolol [Lopressor TAB] 50 mg PO BID #60 tablet traMADol [Ultram 50 MG tab] 50 mg PO Q6HR PRN #20 tablet PRN Reason: Pain
[2017-06-22] MEDS ORDERED: MUCINEX ER PO SCH (22:00)
[2017-06-23] MEDS ORDERED: ZITHROMAX PO SCH (10:00)
== END 2017-06-22 16:28 | disposition home or self-care (01) | DRG 305 ==
LOC: ED 12:44 → 4A 19:27
PROVIDERS: ADMIT Internal Medicine; ATTEND Internal Medicine
PROC: 3E0234Z Introduction of Serum, Toxoid and Vaccine into Muscle, Percutaneous Approach (ICD-10-PCS; principal; 2017-06-22)
DX: I16.1 Hypertensive emergency (principal); I10 Essential (primary) hypertension; I16.0 Hypertensive urgency; R94.31 Abnormal electrocardiogram [ECG] [EKG]; E87.6 Hypokalemia; J32.9 Chronic sinusitis, unspecified; J06.9 Acute upper respiratory infection, unspecified; R51 Headache; T50.905A Adverse effect of unspecified drugs, medicaments and biological substances, initial encounter; Z91.19 Patient's noncompliance with other medical treatment and regimen; Y92.89 Other specified places as the place of occurrence of the external cause; Z23 Encounter for immunization
CPT/HCPCS: 36415; 71010; 80048; 80074; 80307; 81001; 81025; 82550; 82553; 83880; 84484; 85025; 85610; 85730; 90686; 93005; 93010; 96374; 96375; 99285; J0360; J1650

== ENCOUNTER 2017-11-26 13:09 | Emergency (ER) | payer OTHER, SELFPAY ==
[2017-11-26] MEDS ORDERED: CATAPRES ONE (13:51)
[2017-11-26] MEDS ORDERED: CATAPRES PO ONE (13:54)
[2017-11-26 14:27] LABS: Basophils # (Auto) 0.1 K/mm3 (0.0-0.1); Eosinophils # (Auto) 0.1 K/mm3 (0.0-0.4); Eosinophils % (Auto) 1.3 % (0.0-4.3); Hematocrit 31.7 % (30.3-42.9); Hemoglobin 10.2 gm/dl (10.1-14.3); Lymphocytes # (Auto) 0.9 K/mm3 (1.2-5.4); Lymphocytes % (Auto) 13.9 % (13.4-35.0); Mean Corpuscular HGB Conc 32 % (30-34); Mean Corpuscular Hemoglobin 26 pg (28-32); Mean Corpuscular Volume 80 fl (79-97); Monocytes # (Auto) 0.3 K/mm3 (0.0-0.8); Monocytes % (Auto) 4.5 % (0.0-7.3); Platelet Count 322 K/mm3 (140-440); Red Blood Count 3.97 M/mm3 (3.65-5.03); Red Cell Distribution Width 15.9 % (13.2-15.2)
[2017-11-26 15:33] LABS: BUN/Creatinine Ratio 20; Blood Urea Nitrogen 12 mg/dL (7-17); Calcium 8.8 mg/dL (8.4-10.2); Hemolysis Index 2
[2017-11-26] MEDS ORDERED: ANTIVERT PO ONE (16:18)
--- NOTE | 2017-11-26 16:29 | Emergency Department Report ---
ED General Adult HPI - General Chief complaint: High BP Stated complaint: HEADACHES Time Seen by Provider: 11/26/17 15:55 Source: patient Mode of arrival: Ambulatory Limitations: No Limitations - History of Present Illness Initial comments: Patient says she's been having headache and dizziness for the past one week. Dizziness is worse with standing she feels like the room is spinning. Patient says she ran out of her blood pressure medicine 2 weeks ago. He has been taking Norvasc and metoprolol as she cannot remember the doses. She denies nausea vomiting or diarrhea. She denies chest pain, shortness of breath or abdominal pain. -: week(s) (1) Location: head Radiation: non-radiation Severity scale (0 -10): 4 Quality: aching, dull Consistency: constant Improves with: medication Worsens with: none Associated Symptoms: denies: confusion, chest pain, loss of appetite, shortness of breath - Related Data Previous Rx's Medication Instructions Recorded Last Taken Type Azithromycin [Zithromax TAB] 500 mg PO QDAY #7 tablet 06/22/17 Unknown Rx Metoprolol [Lopressor TAB] 50 mg PO BID #60 tablet 06/22/17 Unknown Rx amLODIPine [Norvasc] 10 mg PO DAILY #30 tab 06/22/17 Unknown Rx guaiFENesin ER [Mucinex ER] 600 mg PO BID #14 tablet 06/22/17 Unknown Rx traMADol [Ultram 50 MG tab] 50 mg PO Q6HR PRN #20 tablet 06/22/17 Unknown Rx Amlodipine Besylate [Norvasc] 10 mg PO DAILY #30 tablet 11/26/17 Unknown Rx Meclizine HCl [Motion Sickness 25 mg PO Q8HR PRN 7 Days #15 tablet 11/26/17 Unknown Rx Relief] Metoprolol Tartrate 25 mg PO BID #60 tablet 11/26/17 Unknown Rx Allergies Allergy/AdvReac Type Severity Reaction Status Date / Time No Known Allergies Allergy Verified 07/30/16 00:45 ED Review of Systems ROS: Stated complaint: HEADACHES Other details as noted in HPI Comment: All other systems reviewed and negative Constitutional: no symptoms reported Eyes: denies: vision change ENT: denies: ear pain, throat pain, epistaxis Respiratory: no symptoms reported. denies: shortness of breath Cardiovascular: denies: chest pain, palpitations, syncope Endocrine: no symptoms reported Gastrointestinal: denies: abdominal pain, nausea, vomiting, diarrhea Genitourinary: denies: urgency, dysuria, frequency Musculoskeletal: denies: back pain, joint swelling Neurological: headache, vertigo. denies: weakness, numbness Psychiatric: denies: anxiety, depression, auditory hallucinations Hematological/Lymphatic: denies: easy bleeding, easy bruising ED Past Medical Hx - Past Medical History Hx Hypertension: Yes - Surgical History Additional Surgical History: , - Social History Smoking Status: Never Smoker Substance Use Type: None - Medications Home Medications: Home Medications Medication Instructions Recorded Confirmed Last Taken Type Azithromycin [Zithromax TAB] 500 mg PO QDAY #7 tablet 06/22/17 Unknown Rx Metoprolol [Lopressor TAB] 50 mg PO BID #60 tablet 06/22/17 Unknown Rx amLODIPine [Norvasc] 10 mg PO DAILY #30 tab 06/22/17 Unknown Rx guaiFENesin ER [Mucinex ER] 600 mg PO BID #14 tablet 06/22/17 Unknown Rx traMADol [Ultram 50 MG tab] 50 mg PO Q6HR PRN #20 tablet 06/22/17 Unknown Rx Amlodipine Besylate [Norvasc] 10 mg PO DAILY #30 tablet 11/26/17 Unknown Rx Meclizine HCl [Motion Sickness 25 mg PO Q8HR PRN 7 Days #15 tablet 11/26/17 Unknown Rx Relief] Metoprolol Tartrate 25 mg PO BID #60 tablet 11/26/17 Unknown Rx ED Physical Exam - General Limitations: No Limitations General appearance: alert, in no apparent distress - Head Head exam: Present: atraumatic, normocephalic, normal inspection - Eye Eye exam: Present: normal appearance, PERRL, EOMI Pupils: Present: normal accommodation - ENT ENT exam: Present: normal exam, normal orophraynx, mucous membranes moist - Neck Neck exam: Present: normal inspection, tenderness, full ROM - Respiratory Respiratory exam: Present: normal lung sounds bilaterally. Absent: wheezes, rhonchi, chest wall tenderness - Cardiovascular Cardiovascular Exam: Present: regular rate, normal rhythm, normal heart sounds - GI/Abdominal GI/Abdominal exam: Present: soft, normal bowel sounds. Absent: tenderness, guarding - Extremities Exam Extremities exam: Present: normal inspection, full ROM, normal capillary refill - Back Exam Back exam: Present: normal inspection, full ROM. Absent: tenderness - Neurological Exam Neurological exam: Present: alert, oriented X3, CN II-XII intact - Psychiatric Psychiatric exam: Present: normal affect, normal mood. Absent: depressed, agitated - Skin Skin exam: Present: warm, dry, intact, normal color. Absent: rash ED Course Vital Signs 11/26/17 11/26/17 11/26/17 13:46 15:58 15:59 Temperature 99.2 F 97.8 F Pulse Rate 98 H 79 Respiratory 16 22 20 Rate Blood Pressure 229/139 Blood Pressure 154/91 [Left] O2 Sat by Pulse 100 100 100 Oximetry 11/26/17 16:44 Temperature Pulse Rate 83 Respiratory 19 Rate Blood Pressure Blood Pressure 146/82 [Left] O2 Sat by Pulse 98 Oximetry ED Medical Decision Making - Lab Data Result diagrams: 11/26/17 14:03 11/26/17 14:03 - EKG Data -: EKG Interpreted by Me EKG shows normal: sinus rhythm Rate: normal - EKG Data When compared to previous EKG there are: previous EKG unavailable Interpretation: nonspecific ST-T wave feliberto, LVH, other (Q waves in lead III, V1 to V3, No STEMI.) - Radiology Data Radiology results: report reviewed, image reviewed - Medical Decision Making Uncontrolled hypertension. Headache. Vertigo. Dizziness. Critical care attestation.: If time is entered above; I have spent that time in minutes in the direct care of this critically ill patient, excluding procedure time. ED Disposition Clinical Impression: Vertigo, Medical non-compliance Hypertension Qualifiers: Hypertension type: unspecified Qualified Code(s): I10 - Essential (primary) hypertension Disposition: - TO HOME OR SELFCARE Is pt being admited?: No Does the pt Need Aspirin: No Condition: Stable Instructions: Vertigo (ED), Hypertension (ED) Additional Instructions: Follow-up with your primary doctor tomorrow. If you do not have a primary doctor then follow-up with Dr. Del Valle. Always take your blood pressure medication as prescribed. Return to the emergency room if your condition worsens. Prescriptions: Amlodipine Besylate [Norvasc] 10 mg PO DAILY #30 tablet Meclizine HCl [Motion Sickness Relief] 25 mg PO Q8HR PRN 7 Days #15 tablet PRN Reason: dizziness Metoprolol Tartrate 25 mg PO BID #60 tablet Referrals: PRIMARY CARE, [Primary Care Provider] - 3-5 Days
[2017-11-26 17:02] LABS: INR 0.93 (0.87-1.13)
[2017-11-26 17:04] LABS: Partial Thromboplastin Time 35.6 Sec. (24.2-36.6)
[2017-11-26 18:13] LABS: Bacteria,Urine 1+ /HPF (Negative); Bilirubin,Urine NEG (Negative); Blood,Urine LG (Negative); Color,Urine Yellow (Yellow); Mucus,Urine FEW /HPF; Urobilinogen,Urine < 2.0 mg/dL (<2.0)
[2017-11-26 18:17] LABS: HCG Qualitative,Urine Negative (Negative)
[2017-11-26] MEDS ORDERED: NORVASC PO ONE (19:42)
[2017-11-26] MEDS ORDERED: NORVASC ONE (19:43)
--- NOTE | 2017-11-26 20:01 | Cat Scan Report ---
FINAL REPORT PROCEDURE: CT HEAD/BRAIN WO CON TECHNIQUE: Computerized tomography of the head was performed without contrast material. HISTORY: Headache and Dizziness COMPARISON: No prior studies are available for comparison. FINDINGS: There is no CT evidence of intracranial mass, hemorrhage, acute territorial infarction, or hydrocephalus. The intracranial arteries are symmetric in density. Calvarium is intact. Visualized paranasal sinuses and mastoids are aerated. IMPRESSION: No CT evidence of acute abnormality
[2017-11-26 22:07] VITALS: BP 175/100
== END 2017-11-26 22:26 | disposition home or self-care (01) ==
LOC: ED 13:09
DX: R42 Dizziness and giddiness (principal); I10 Essential (primary) hypertension
CPT/HCPCS: 36415; 70450; 80048; 81001; 81025; 84484; 85025; 85610; 85730; 93005; 93010